=== PATIENT | male | born 1985 ===

== ENCOUNTER 2024-07-21 22:38 | Emergency (ER) | payer OTHER, SELFPAY ==
[2024-07-21 22:40] VITALS: BP 154/102
--- NOTE | 2024-07-22 00:53 | ED.GENMED ---
History of Present Illness
<GRACY Taveras - Last Filed: 07/22/24 02:22>
General
Chief Complaint: Musculo-Skeletal Complaint
Time Seen by Provider: 07/22/24 00:53
History of Present Illness
History of Present Illness:
Patient is a 38 year old male presenting with pain in his left arm and lower back. Patient states that he was at working lifting heavy objects and by the end of the day the pain came. He does not remember any specific episode of lifting or dropping
anything on his arm or any popping sensation. The pain was described as cramping and rated a 9/10 on the pain scale. He tried taking Advil but it did not relieve symptoms. The pain radiates from his upper shoulder all the way down to his elbow. He
reports numbness and tingling that runs down his arm and decreased sensation in his first 2 digits. The lower back pain was also described as dull and rated a 5/10 on a pain scale. Patient claims there is numbness that runs down his left leg.
Patient denies any swelling bruising chest pain palpitations shortness of breath fever fatigue headache.
Patient has no significant PMH and is not on any medication besides advil.
Review of Systems
<GRACY Taveras - Last Filed: 07/22/24 02:22>
Review of Systems
Respiratory: Reports no symptoms
Cardiac: Reports no symptoms
Musculoskeletal: Reports muscle pain
Neurological: Reports numbness
Phy Exam
<GRACY Taveras - Last Filed: 07/22/24 02:22>
Cardiovascular Exam
Cardiovascular Exam: regular rate/rhythm, no edema, no gallop, no JVD and no murmur
Pulmonary Exam
Pulmonary Exam: lungs clear, no respiratory distress, no rales, chest non tender, no crackles, no rhonchi, no stridor, no wheezing and no cough
Sensory
Sensory Exam: decreased sensation (in first 2 digits of left hand )
Musculoskeletal Exam
Musculoskeletal Exam: back pain
<Nicola Rachel DO - Last Filed: 07/22/24 02:23>
Physical Exam
Physical Exam:
Physical Exam
General: no apparent distress, not acutely ill
Neck: No jaundice
Heart: s1/s2 regular rate and rhythm, no murmur. equal radial pulses.
Lungs: no acute respiratory distress. clear bilaterally tender in the left anterior chest
Abdomen: Not tender
Neuro: alert and oriented. no focal neurological deficits
Skin: no rash
Psychiatric: well kept. interactive and cooperative
Extremities: no edema.
Course
<ST NitinPA - Last Filed: 07/22/24 02:22>
Orders/Labs/Results
Orders:
Orders
07/22/24 01:37
Ibuprofen [Motrin] 600 mg PO NOW STA
Oxycodone/Acetaminophen [Percocet 5/325] 1 tablet PO NOW STA
07/22/24 01:38
Electrocardiogram (*1) Urgent
Reason for Study: Chest Pain
EKG- Treatment ONCE
CR Cervical Spine 2 or 3 Vw Urgent
Comment:
Reason For Exam: pain
CR Chest - 2 Views Urgent
Comment:
Reason For Exam: cp
Vital Signs
Initial and Last Documented VS:
Initial Vital Signs
Temp Pulse Resp BP Pulse Ox
98.2 F 114 22 154/102 96
07/21/24 22:40 07/21/24 22:40 07/21/24 22:40 07/21/24 22:40 07/21/24 22:40
Last Documented Vital Signs
Temp Pulse Resp BP Pulse Ox
98.2 F 69 18 145/78 97
07/21/24 22:40 07/22/24 01:56 07/22/24 01:56 07/22/24 01:56 07/22/24 01:56
<Nicola Rachel DO - Last Filed: 07/22/24 02:23>
Orders/Labs/Results
Orders:
Orders
07/22/24 01:37
Ibuprofen [Motrin] 600 mg PO NOW STA
Oxycodone/Acetaminophen [Percocet 5/325] 1 tablet PO NOW STA
07/22/24 01:38
Electrocardiogram (*1) Urgent
Reason for Study: Chest Pain
EKG- Treatment ONCE
CR Cervical Spine 2 or 3 Vw Urgent
Comment:
Reason For Exam: pain
CR Chest - 2 Views Urgent
Comment:
Reason For Exam: cp
Vital Signs
Initial and Last Documented VS:
Initial Vital Signs
Temp Pulse Resp BP Pulse Ox
98.2 F 114 22 154/102 96
07/21/24 22:40 07/21/24 22:40 07/21/24 22:40 07/21/24 22:40 07/21/24 22:40
Last Documented Vital Signs
Temp Pulse Resp BP Pulse Ox
98.2 F 69 18 145/78 97
07/21/24 22:40 07/22/24 01:56 07/22/24 01:56 07/22/24 01:56 07/22/24 01:56
<GRACY Taveras - Last Filed: 07/22/24 02:22>
MDM/Problems Addressed
Differential Diagnosis Includes:
muscle strain, pectoralis tear, nerve impingement, lower back strain, herniated disc
MDM/Problems Addressed:
Order ekg xray of neck and back, give nsaids for pain, update ekg and xr normal give pain meds
<GRACY Taveras - Last Filed: 07/22/24 02:22>
*Critical Care Note
Total Time (30-74mins, 75-104mins- exclusive of procedures): Not Applicable
<Nicola Rachel DO - Last Filed: 07/22/24 02:23>
*Radiology
Radiology exam reviewed: preliminary read by ED provider
*Pulse Oximetry
Patient hypoxic: no
*EKG
Interpreted by ED Provider?: Yes
Interpretation: normal
Comparison EKG: no comparison EKG present
Heart Rate: 78
Rate: normal
Rhythm: sinus
Ischemia: no ischemia
<Nicola Rachel DO - Last Filed: 07/22/24 02:23>
Update Note
Update Note:
Update EKG x-rays noted
ED Attending Note
<GRACY Taveras - Last Filed: 07/22/24 02:22>
-
Portions of this chart may have been created with voice recognition software.� Occasional wrong word or��sound alike� substitutions may have occurred due to the inherent limitations of voice recognition software.
<Nicola Rachel, - Last Filed: 07/22/24 02:23>
ED Attending Note
Patient seen and examined by attending physician: Yes
ED Attending Note:
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
check chest x-ray EKG C-spine film, he has no fever no cough
Discharge Plan
Departure
Patient Disposition: Home (Routine Discharge)
Date of Disposition: 07/22/24
Time of Disposition: 02:22
Patient with high blood pressure during this ER visit?: No
Condition: Good
Discharge Problem:
Muscle strain
Instructions: Muscle Strain (DC), Ibuprofen
Prescriptions:
New
metaxalone 800 mg tablet
800 mg PO TID PRN (Reason: muscle pain) Qty: 10 0RF
ibuprofen 600 mg tablet
600 mg PO Q8H PRN (Reason: Pain) Qty: 20 0RF
Referrals:
NONE,* [Family Provider] -
Interventions
Interventions:
*Risk Screen - Suicide Last Done: 07/21/24 22:40
*General Assessment Last Done: 07/22/24 00:56
*Neglect/Abuse Screening Last Done: 07/21/24 22:40
ED- Fall Risk Assessment Last Done: 07/22/24 00:56
*ED COVID-19 Vaccine History Last Done: 07/22/24 00:56
ED-Musculoskeletal Assessment Last Done: 07/22/24 00:56
Discharge Date and Time
Print Language: JAPANESE
[2024-07-22] MEDS: PERCOCET 5/325 1 TABLET PO (01:53)
[2024-07-22] MEDS: MOTRIN 600 MG PO (01:53)
[2024-07-22 01:56] VITALS: BP 145/78
[2024-07-22 02:33] VITALS: BP 152/79
== END 2024-07-22 02:35 | disposition home or self-care (01) ==
LOC: EMR 22:38
PROVIDERS: EMERGENCY PHYSICIAN Emergency Medicine
DX: M54.50 Low back pain, unspecified (principal); M79.602 Pain in left arm
CPT/HCPCS: 99283; 71046; 72040; 93005